=== PATIENT | male | born 1955 | race Caucasian/White ===

== ENCOUNTER 2020-07-29 09:58 | Inpatient (IN) | payer MEDICARE ==
[~2020-07-29] VITALS: Ht 182.9 cm; Wt 115.3 kg
[~2020-07-29 09:58] MED LIST: GLIM4 PO; Janumet 50-1,01 EACH PO; LEVO750 PO; LEVSOD50 PO; LOSHYD100 PO; PIOG45 PO; ROSU10TA PO; Zofran Odt4 MG PO
[2020-07-29 10:30] LABS: BASOPHILS ABSOLUTE AUTO 0.02 K/mm3 (0.00-0.23); BASOPHILS PERCENT AUTO 0 % (0-2); EOSINOPHILS ABSOLUTE AUTO 0.08 K/mm3 (0.00-0.68); EOSINOPHILS PERCENT AUTO 1 % (0-6); Hematocrit 29.9 % (37.0-53.0); Hemoglobin 9.6 g/dL (13.5-17.5); IMMATURE GRAN ABSOLUTE AUTO 0.02 K/mm3 (0.00-0.10); IMMATURE GRAN PERCENT AUTO 0 % (0-1); LYMPHOCYTES ABSOLUTE AUTO 1.12 K/mm3 (0.84-5.20); LYMPHOCYTES PERCENT AUTO 11 % (21-46); MONOCYTES ABSOLUTE AUTO 0.65 K/mm3 (0.16-1.47); MONOCYTES PERCENT AUTO 6 % (4-13); Mean Corpuscular HGB 30.8 pg (26.0-34.0); Mean Corpuscular HGB Conc 32.1 g/dL (31.5-36.5); Mean Corpuscular Volume 96 fL (80-100); Mean Platelet Volume 10.4 fL (9.1-12.4); NEUTROPHILS ABSOLUTE AUTO 8.46 K/mm3 (1.96-9.15); NEUTROPHILS PERCENT AUTO 82 % (41-73); Platelet Count 204 K/mm3 (150-400); RDW Coefficient Variation 12.5 % (11.7-14.2); Red Blood Cell Count 3.12 M/mm3 (4.30-5.90); White Blood Cell Count 10.35 K/mm3 (4.00-11.30)
[2020-07-29] MEDS ORDERED: CYAN500 PO (10:30)
[2020-07-29] MEDS ORDERED: ONE DAILY MUL400 MCG PO (10:31)
[2020-07-29 10:54] LABS: International Normalized Ratio 1.04; Prothrombin Time Results 11.1 Sec (9.7-11.5)
[2020-07-29 10:59] LABS: Albumin, Blood 3.6 g/dL (3.4-5.0); Bilirubin, Total 0.3 mg/dL (0.1-1.0); Calcium, Blood 9.5 mg/dL (8.5-10.1); Creatinine, Blood 1.52 mg/dL (0.60-1.20); Globulin, Blood 3.5 g/dL (2.2-4.0); Potassium, Blood 4.5 mmol/L (3.5-5.5); Total Protein, Blood 7.1 g/dL (6.4-8.2)
[2020-07-29] MEDS ORDERED: JANUMET 50-1,01 EACH PO (12:31)
[2020-07-29 17:07] LABS: Hematocrit 27.7 % (37.0-53.0); Hemoglobin 8.8 g/dL (13.5-17.5)
--- NOTE | 2020-07-29 17:46 | NUR ---
SHIFT SUMMARY; ER ADMIT TO PCU 6. ARRIVES VIA STRETCHER, MOVES TO BED INDEPENDANTLY. REPORTS LESS WEAKNESS SINCE BEING IN ER. L/S CLEAR THROUGHOUT, A/A/OX4. PROTONIX DRIP INFUSING AT 10MG/HR. EVALUATED IN ER BY DR. NICHOLSON. ICE CHIPS AND WATER ONLY AT THIS TIME PER DR. NICHOLSON, NPO AFTER MIDNIGHT FOR EGD TOMORROW. PLAN OF CARE REVIWED WITH PT. INDEPENDANT IN ROOM. REPORTS 1 EPISODE OF BLOODY TINGED EMESIS THIS AM AND 1 BLACK TARY STOOL THIS AM. WILL CONTINUE TO TREAT AND MONITOR UNTIL CHANGE OF SHIFT.
[2020-07-30 03:56] LABS: BASOPHILS ABSOLUTE AUTO 0.01 K/mm3 (0.00-0.23); BASOPHILS PERCENT AUTO 0 % (0-2); EOSINOPHILS ABSOLUTE AUTO 0.07 K/mm3 (0.00-0.68); EOSINOPHILS PERCENT AUTO 1 % (0-6); Hematocrit 25.1 % (37.0-53.0); Hemoglobin 8.1 g/dL (13.5-17.5); IMMATURE GRAN ABSOLUTE AUTO 0.01 K/mm3 (0.00-0.10); IMMATURE GRAN PERCENT AUTO 0 % (0-1); LYMPHOCYTES ABSOLUTE AUTO 1.39 K/mm3 (0.84-5.20); LYMPHOCYTES PERCENT AUTO 20 % (21-46); MONOCYTES ABSOLUTE AUTO 0.75 K/mm3 (0.16-1.47); MONOCYTES PERCENT AUTO 11 % (4-13); Mean Corpuscular HGB 30.7 pg (26.0-34.0); Mean Corpuscular HGB Conc 32.3 g/dL (31.5-36.5); Mean Corpuscular Volume 95 fL (80-100); Mean Platelet Volume 10.3 fL (9.1-12.4); NEUTROPHILS PERCENT AUTO 68 % (41-73); Platelet Count 167 K/mm3 (150-400); RDW Coefficient Variation 12.6 % (11.7-14.2); RDW Standard Deviation 43.8 fL (35.1-46.3); Red Blood Cell Count 2.64 M/mm3 (4.30-5.90); White Blood Cell Count 7.03 K/mm3 (4.00-11.30)
[2020-07-30 04:06] LABS: Bun/Creatinine Ratio 48.3 (12.0-20.0); Calcium, Blood 8.9 mg/dL (8.5-10.1); Creatinine, Blood 1.49 mg/dL (0.60-1.20); Potassium, Blood 3.8 mmol/L (3.5-5.5)
--- NOTE | 2020-07-30 04:55 | NUR ---
SUMMARY: A/OX4, INDEPENDENT IN ROOM AND SPECIFIES NEEDS. IVF COMMENCED PER EMAR AT 125 ML/HR W/PROTONIX GTT INFUSING FOR GI BLEED. PT DENIES N/V AND C/O VERY MILD ABDO TENDERNESS. HE REPORTED A LARGE FORMED BLACK TARRY STOOL THIS SHIFT WHICH WASN'T WITNESSED BY STAFF. HE'S NPO EXCEPT WATER/ICE/MEDS UNTIL 1400 THEN WILL BE STRICT NPO FOR EGD PER . LS CLEAR AND NO S/S DYSPNEA OR SOB. PT DENIES DIZZYNESS/LIGHTHEADED. HE REMAINS NSR AT 80'S-90'S BPM. HGB/HCT TRENDING DOWN, NOW 8.1/25.1 (WAS 8.8/27.7). Q6H CBG'S STABLE, NO INSULIN REQUIRED. HE STILL NEEDS HOME MEDS RX'D, ADMISSION ORDERS COMPLETED AND DVT PROPHYLAXIS. 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 NO ACUTE CHANGES, VSS/AFEBRILE. WCTM AND REPORT TO DAY RN.
--- NOTE | 2020-07-30 07:24 | NUR ---
ASSUMED CARE: PT SITTING UP AT SIDE OF BED. NSR ON TELE. PT AWARE OF NPO ORDERS AND H2O UNTIL 1400. DENIES NEEDS OR CONCERNS AT THIS TIME.
[2020-07-30 11:39] LABS: Hematocrit 25.2 % (37.0-53.0)
--- NOTE | 2020-07-30 18:04 | NUR ---
SHIFT SUMMARY: PT AWAITING RESULT OF RAPID COVID SWAB. PLAN IS FOR EGD ONCE RESULT COMES BACK. PT HAS BEEN NPO ALL DAY. FAMILY AT BEDSIDE. BLACK TARRY STOOLS T/O THE DAY. PT INDEPENDENT IN ROOM. DENIES NEEDS OR CONCERNS.
--- NOTE | 2020-07-30 18:24 | NUR ---
PT'S RAPID COVID NEGATIVE. CALL TO DR CADE WHO STATES HE WILL CALL ONCALL CREW IN. PT AWARE
--- NOTE | 2020-07-30 19:22 | NUR ---
07/30/201921 Anastasia Boone History, Chart, Medications and Allergies reviewed before start of procedure.PATIENT DETERMINED TO BE ASA APPROPRIATE FOR PROPOFOL SEDATION PRIOR TO START OF PROCEDURE BY .MONITOR INTACT WITH CONTINUOUS PULSE OXIMETRY AND INTERMITTENT BP.3-LEAD EKG REVIEWED WITH PHYSICIAN PRIOR TO START OF PROCEDURE.O2 VIA N/C INTACT THROUGHOUT SEDATION/PROCEDURE.
--- NOTE | 2020-07-30 19:27 | NUR ---
APPROX 1900 PATIENT TAKEN TO DAY SURGERY FOR PROCEEDURE, WILL DO ASSESSMENT UPON RETURN.
--- NOTE | 2020-07-30 20:48 | NUR ---
APPROX 2000 PATIENT ARRIVED BACK FROM DAY SURGERY, PATIENT ALERT AND ORIENTED AND ABLE TO AMBULATE FROM RNEY TO BED WITH NO DIFFICULTY. ASSESSMENT COMPLETED AND PATIENT SETTLED FOR THE NIGHT. PROTONIX DRIP CONTINUED PER MD CADE'S ORDERS.
--- NOTE | 2020-07-31 04:38 | NUR ---
SHIFT SUMMARY: PATIENT DENIED PAIN THIS SHIFT, VSS, CALL LIGHT WTIHIN REACH, BED LOW AND LOCKED, NO ACUTE EPISODES OVERNIGHT/
[2020-07-31 06:22] LABS: Hemoglobin 7.4 g/dL (13.5-17.5)
--- NOTE | 2020-07-31 07:28 | NUR ---
ASSUMED CARE: PT RESTING QUIETLY AT THIS TIME. NSR ON TELE. PROTONIX GTT RUNNING. NO FURTHER NEEDS AT THIS TIME.
[2020-07-31] MEDS ORDERED: PANT40 PO (12:07)
[2020-07-31 14:43] LABS: Hematocrit 24.9 % (37.0-53.0); Hemoglobin 7.9 g/dL (13.5-17.5)
[2020-07-31] MEDS ORDERED: GLIM2 PO (15:16)
--- NOTE | 2020-07-31 16:00 | NUR ---
PT GIVEN INSTRUCTIONS ABOUT MEDICATIONS AND TO CALL DR CADE'S OFFICE FOR FURTHER QUESTIONS OR CONCERNS. PT'S IV DC'D WNL. ESCORTED OUT VIA WHEEL CHAIR BY STAFF. NO FURTHER NEEDS OR CONCERNS.
== END 2020-07-31 15:55 | disposition home or self-care (01) | DRG 379 ==
LOC: ER 09:58 → PCU 11:18
PROVIDERS: Emergency Medicine; Internal Medicine; Internal Medicine Gastroenterology; ADMIT Internal Medicine Endocrinology, Diabetes & Metabolism
PROC: 0W3P8ZZ Control Bleeding in Gastrointestinal Tract, Via Natural or Artificial Opening Endoscopic (ICD-10-PCS; principal; 2020-07-30 16:30)
DX: K25.4 Chronic or unspecified gastric ulcer with hemorrhage (principal); E11.22 Type 2 diabetes mellitus with diabetic chronic kidney disease; E11.42 Type 2 diabetes mellitus with diabetic polyneuropathy; E11.319 Type 2 diabetes mellitus with unspecified diabetic retinopathy without macular edema; I12.9 Hypertensive chronic kidney disease with stage 1 through stage 4 chronic kidney disease, or unspecified chronic kidney disease; N18.3 Chronic kidney disease, stage 3 (moderate); E78.2 Mixed hyperlipidemia; Z68.34 Body mass index [BMI] 34.0-34.9, adult; T39.315A Adverse effect of propionic acid derivatives, initial encounter
CPT/HCPCS: 36415; 71045; 80048; 80053; 82947; 85014; 85018; 85025; 85610; 85730; 86850; 86900; 86901; 93005; 93010; 96365; 96376; 99285-25; C9113; J1815; J2704; J7030; J7120; U0003

== ENCOUNTER 2020-10-04 11:32 | Day surgery (SDC) | payer MEDICARE ==
[~2020-10-04] VITALS: Ht 182.9 cm; Wt 110.9 kg
[~2020-10-04 11:32] MED LIST changes: +CYAN500 PO; +GLIM2 PO; +JANUMET 50-1,01 EACH PO; +ONE DAILY MUL400 MCG PO; +PANT40 PO
[2020-10-04] MEDS ORDERED: JANUMET 50-1,01 EACH (12:06)
== END 2020-10-04 14:15 | disposition home or self-care (01) ==
LOC: ORSCSDS 11:32 → ORD 13:15 → ORSCSDS 14:15
PROVIDERS: Internal Medicine Gastroenterology
PROC: 0DB78ZX Excision of Stomach, Pylorus, Via Natural or Artificial Opening Endoscopic, Diagnostic (ICD-10-PCS; principal; 2020-10-04 13:15)
PROC: 0DB58ZX Excision of Esophagus, Via Natural or Artificial Opening Endoscopic, Diagnostic (ICD-10-PCS; principal; 2020-10-04 13:15)
DX: Z87.11 Personal history of peptic ulcer disease (principal); K44.9 Diaphragmatic hernia without obstruction or gangrene; I10 Essential (primary) hypertension; E78.5 Hyperlipidemia, unspecified; E11.9 Type 2 diabetes mellitus without complications; N18.9 Chronic kidney disease, unspecified; Z79.899 Other long term (current) drug therapy; Z79.84 Long term (current) use of oral hypoglycemic drugs
CPT/HCPCS: 82947; 88305; 88342; J2704; J7120

== ENCOUNTER → 2023-12-14 | Outpatient (CLI) | payer MEDICARE ==
[~2023-12-14] MED LIST changes: +JANUMET 50-1,01 EACH
== END | disposition home or self-care (01) ==
LOC: LAB SHORT 12:30 → LAB 12:30
DX: C44.612 Basal cell carcinoma of skin of right upper limb, including shoulder (principal)
CPT/HCPCS: 88305

== ENCOUNTER 2024-02-23 09:08 | Day surgery (SDC) | payer MEDICARE ==
[~2024-02-23] VITALS: Ht 195.6 cm; Wt 111.8 kg
[~2024-02-23 09:08] MED LIST changes: +Lactated Ringer's 1,000 ML IV ONE; +propofoL 40 ML IV ONE
[2024-02-23] MEDS ORDERED: IRON18 MG (10:28)
[2024-02-23] MEDS ORDERED: CALCIUM MAGNES1 EACH (10:28)
[2024-02-23] MEDS ORDERED: CENTRUM SILVER1 EAC2 (10:29)
[2024-02-23] MEDS ORDERED: VITAMIN D310 MC4 (10:29)
[2024-02-23] MEDS ORDERED: FISH OIL 1,0001 EA10 (10:29)
[2024-02-23] MEDS ORDERED: Lactated Ringer's 1,000 ML IV ONE (10:45)
[2024-02-23 11:43] VITALS: BP 124/76
== END 2024-02-23 11:45 | disposition home or self-care (01) ==
LOC: ORSCSDS 09:08
PROVIDERS: Surgery
PROC: 0DJD8ZZ Inspection of Lower Intestinal Tract, Via Natural or Artificial Opening Endoscopic (ICD-10-PCS; principal; 2024-02-23 10:30)
DX: Z12.11 Encounter for screening for malignant neoplasm of colon (principal); I12.9 Hypertensive chronic kidney disease with stage 1 through stage 4 chronic kidney disease, or unspecified chronic kidney disease; E11.22 Type 2 diabetes mellitus with diabetic chronic kidney disease; N18.9 Chronic kidney disease, unspecified; Z79.84 Long term (current) use of oral hypoglycemic drugs; Z79.899 Other long term (current) drug therapy
CPT/HCPCS: 82947; J2704; J7120